=== PATIENT | male | born 2000 | race Hispanic/Latino ===

== ENCOUNTER 2020-10-24 12:14 | Emergency (ER) | payer SELFPAY ==
[2020-10-24 13:11] LABS: Absolute Lymphocytes (CBC) 0.6 K/uL (0.7-4.9); Basophils % 0.2 % (0-1.3); Hematocrit 40.1 % (39.6-49.0); Lymphocytes % 4.5 % (15.3-44.8); MPV 8.3 fL (7.6-11.3); RBC Red Blood Cell Count 4.56 M/uL (4.33-5.43)
[2020-10-24] MEDS ORDERED: FAMOTIDINE 20 MG/2 ML VIAL IV ONE (13:27)
[2020-10-24] MEDS ORDERED: NA CHLORIDE 0.9% 1,000 ML ONE (13:27)
[2020-10-24] MEDS ORDERED: ONDANSETRON 4 MG/2 ML VIAL ONE (13:27)
[2020-10-24 13:30] LABS: ALT/SGPT 23 U/L (12-78); AST/SGOT 14 U/L (15-37); Albumin 3.9 g/dL (3.4-5.0); Alkaline Phosphatase 81 U/L (45-117); BUN Blood Urea Nitrogen 12 mg/dL (7-18); Bicarbonate 26 mmol/L (21-32); Bilirubin Direct 0.1 mg/dL (0-0.2); Bilirubin Total 0.6 mg/dL (0.2-1.0); Creatine Phosphokinase 119 U/L (39-308); Glucose Level 95 mg/dL (74-106); Lipase 40 U/L (73-393); Potassium 3.5 mmol/L (3.5-5.1); Protein, Total 7.3 g/dL (6.4-8.2); Sodium Level 138 mmol/L (136-145)
[2020-10-24 13:41] LABS: Urine Blood Negative (Negative); Urine Glucose Negative (Negative); Urine Protein Negative (Negative)
--- NOTE | 2020-10-24 14:32 | RAD REPORT ---
EXAM DESCRIPTION: US - Abdomen Exam Limited - 10/24/2020 2:20 pm CLINICAL HISTORY: nausea/vomiting COMPARISON: No comparisons FINDINGS: Limited abdominal ultrasound. No shadowing gallstones identified. No pericholecystic fluid . The sonographic Young sign is negative. No biliary ductal dilatation. IMPRESSION: Negative for cholelithiasis, acute cholecystitis, or biliary ductal dilatation.
--- NOTE | 2020-10-24 14:52 | ER ---
Nurse's Notes [facility] Name: Diego Lagunas Age: 20 yrs Sex: Male : 2000 Arrival Date: 10/24/2020 Time: 12:17 Bed 19 Private MD: Diagnosis: Nausea with vomiting, unspecified;Headache Presentation: 10/24 12:23 Chief complaint: N/V and headache x 2 days, not tolerating fluids. Coronavirus screen: hb Client presents with at least one sign or symptom that may indicate coronavirus-19. Standard/surgical mask placed on the client. Provider contacted for isolation considerations. Ebola Screen: No symptoms or risks identified at this time. Initial Sepsis Screen: Does the patient meet any 2 criteria? HR > 90 bpm. No. Patient's initial sepsis screen is negative. Does the patient have a suspected source of infection? No. Patient's initial sepsis screen is negative. Risk Assessment: Do you want to hurt yourself or someone else? Patient reports no desire to harm self or others. Onset of symptoms was October 23, 2020. 12:23 Method Of Arrival: Ambulatory 12:23 Acuity: ELEAZAR 3 Triage Assessment: 13:22 General: Appears in no apparent distress. Behavior is calm, cooperative, appropriate tr6 for age. Pain: Denies pain. EENT:. EENT: No deficits noted. Neuro: No deficits noted. Cardiovascular: No deficits noted. Respiratory: No deficits noted. GI: Reports nausea, vomiting. : No deficits noted. Derm: No deficits noted. Musculoskeletal: No deficits noted. Historical: - Allergies: 12:24 No Known Allergies; hb - Home Meds: 12:24 None [Active]; hb - PMHx: 12:24 None; hb - PSHx: 12:24 None; hb - Immunization history:: Client reports receiving the 2nd dose of the Covid vaccine. - Social history:: Smoking status: Patient reports the use of cigarette tobacco products, denies chronic smoking, but will smoke occasionally. Screenin:20 Abuse screen: Denies threats or abuse. Denies injuries from another. Nutritional tr6 screening: No deficits noted. Tuberculosis screening: No symptoms or risk factors identified. Fall Risk None identified. Vital Signs: 12:23 BP 132 / 74; Pulse 98; Resp 16; Temp 99.9(TE); Pulse Ox 99% ; Weight 90.72 kg; Height 5 hb ft. 5 in. (165.10 cm); Pain 7/10; 12:23 Body Mass Index 33.28 (90.72 kg, 165.10 cm) hb ED Course: 12:17 Patient arrived in ED. mr 12:24 Triage completed. hb 12:24 Arm band placed on. hb 12:28 Estuardo Noland PA is PHCP. cp 12:28 Sean De La Rosa MD is Attending Physician. cp 12:48 Grace Pham, JAMESON is Primary Nurse. tr6 13:20 Patient has correct armband on for positive identification. Bed in low position. Call tr6 light in reach. Side rails up X 1. Door closed. Noise minimized. Visitors limited. Lights dimmed. 13:20 No provider procedures requiring assistance completed. Inserted saline lock: 18 gauge tr6 in right antecubital area, using aseptic technique. Blood collected. 14:20 US Abdomen Limited: epigastric/RUQ In Process Unspecified. EDMS 15:15 IV discontinued, intact, bleeding controlled, No redness/swelling at site. Pressure ss dressing applied. Administered Medications: 13:19 Drug: Zofran (Ondansetron) 4 mg Route: IVP; Site: right antecubital; tr6 13:19 Drug: Pepcid (famotidine) 20 mg Route: IVP; Site: right antecubital; tr6 13:19 Drug: NS 0.9% 1000 ml Route: IV; Rate: 1 bolus; Site: right antecubital; tr6 15:16 Follow up: IV Status: Completed infusion; IV Intake: 1000ml ss Intake: 15:16 IV: 1000ml; Total: 1000ml. ss Outcome: 14:51 Discharge ordered by MD. cp 15:15 Discharged to home ambulatory, with family. ss 15:15 Condition: good 15:15 Discharge instructions given to patient, family, Instructed on discharge instructions, follow up and referral plans. Demonstrated understanding of instructions, follow-up care, medications. 15:17 Patient left the ED. ss Signatures: Dispatcher [employer] [facility] Jesi UriosteguiGale RN RN Estuardo Noland PA PA cp Baxter, Heather, RN RN Ramnanan, Grace, RN RN tr6
--- NOTE | 2020-10-24 14:52 | EDPHYS ---
Physician Documentation [facility] Name: Diego Lagunas Age: 20 yrs Sex: Male : 2000 Arrival Date: 10/24/2020 Time: 12:17 Bed 19 Private MD: ED Physician Sean De La Rosa HPI: 10/24 13:00 This 20 yrs old Male presents to ER via Ambulatory with complaints of cp Vomiting, Headache. 13:00 The patient presents to the emergency department with nausea, that is mild, vomiting, cp that is intermittent, described as bilious, started last night and continued today at work. Possible causes: unknown. Associated signs and symptoms: Pertinent positives: headache, Pertinent negatives: abdominal pain, constipation, diarrhea, fever, GI bleeding. Severity of symptoms: in the emergency department the symptoms are unchanged. Historical: - Allergies: 12:24 No Known Allergies; hb - Home Meds: 12:24 None [Active]; hb - PMHx: 12:24 None; hb - PSHx: 12:24 None; hb - Immunization history:: Client reports receiving the 2nd dose of the Covid vaccine. - Social history:: Smoking status: Patient reports the use of cigarette tobacco products, denies chronic smoking, but will smoke occasionally. ROS: 13:05 Constitutional: Negative for body aches, chills, fever. cp 13:05 Eyes: Negative for injury, pain, redness, and discharge. cp 13:05 ENT: Negative for ear pain, sore throat, difficulty swallowing, difficulty handling secretions. 13:05 Cardiovascular: Negative for chest pain. 13:05 Respiratory: Negative for cough, shortness of breath, wheezing. 13:05 Abdomen/GI: Positive for nausea and vomiting, Negative for abdominal pain, diarrhea, constipation, hematemesis, black/tarry stool, rectal bleeding. 13:05 : Negative for urinary symptoms. 13:05 Neuro: Positive for headache, Negative for altered mental status, numbness, syncope, weakness. 13:05 All other systems are negative. Exam: 13:10 Constitutional: The patient appears in no acute distress, alert, awake, comfortable, cp non-toxic, well developed, well nourished. 13:10 Head/Face: Normocephalic, atraumatic. cp 13:10 Eyes: Periorbital structures: appear normal, Conjunctiva: normal, no exudate, no injection, Sclera: no appreciated abnormality, Lids and lashes: appear normal, bilaterally. 13:10 ENT: External ear(s): are unremarkable, Nose: is normal, Mouth: Lips: moist, Oral mucosa: pink and intact, moist, Posterior pharynx: Airway: no evidence of obstruction, patent. 13:10 Neck: ROM/movement: is normal, is supple, no meningismus, no nuchal rigidity, Lymph nodes: no appreciated lymphadenopathy. 13:10 Chest/axilla: Inspection: normal, Palpation: is normal, no crepitus, no tenderness. 13:10 Cardiovascular: Rate: normal, Rhythm: regular. 13:10 Respiratory: the patient does not display signs of respiratory distress, Respirations: normal, no use of accessory muscles, no retractions, labored breathing, is not present, intercostal retractions, are absent, Breath sounds: are clear throughout, no decreased breath sounds, no stridor, no wheezing. 13:10 Abdomen/GI: Inspection: abdomen appears normal, Palpation: abdomen is soft and non-tender, in all quadrants. 13:10 Back: pain, is absent, ROM is normal. 13:10 Neuro: Orientation: to person, place \T\ time. Mentation: is normal, Cerebellar function: is grossly normal, Motor: moves all fours, strength is normal, Sensation: is normal. Vital Signs: 12:23 BP 132 / 74; Pulse 98; Resp 16; Temp 99.9(TE); Pulse Ox 99% ; Weight 90.72 kg; Height 5 hb ft. 5 in. (165.10 cm); Pain 7/10; 12:23 Body Mass Index 33.28 (90.72 kg, 165.10 cm) hb MDM: 12:41 Patient medically screened. cp 13:00 Differential diagnosis: gastritis, cholecystitis, pancreatitis, viral gastroenteritis, cp gastroenteritis. 14:50 Data reviewed: vital signs, nurses notes, lab test result(s), radiologic studies, cp ultrasound. 14:50 Counseling: I had a detailed discussion with the patient and/or guardian regarding: the cp historical points, exam findings, and any diagnostic results supporting the discharge/admit diagnosis, lab results, radiology results, to return to the emergency department if symptoms worsen or persist or if there are any questions or concerns that arise at home. 14:50 Response to treatment: the patient's symptoms have markedly improved after treatment, cp VSS. Nausea and headache markedly improved, vomiting resolved and patient tolerating po fluids. Abdomen non-tender on exam. Will discharge to home for continued monitoring. 10/24 12:40 Order name: Basic Metabolic Panel 10/24 12:40 Order name: CBC with Diff 10/24 12:40 Order name: Hepatic Function; Complete Time: 14:15 10/24 14:15 Interpretation: Normal except: AST 14. 10/24 12:40 Order name: Lipase; Complete Time: 14:15 10/24 14:15 Interpretation: Normal except: LIP 40. 10/24 12:41 Order name: CK; Complete Time: 14:15 10/24 12:41 Order name: Basic Metabolic Panel; Complete Time: 14:15 EDMS 10/24 12:40 Order name: IV Saline Lock; Complete Time: 13:19 10/24 12:41 Order name: CBC with Automated Diff; Complete Time: 13:16 EDMS 10/24 13:16 Interpretation: Normal except: WBC 12.60; HGB 13.5; YVETTE% 88.5; LYM% 4.5; NEUT A 11.2; cp LYMA 0.6. 10/24 13:17 Order name: US Abdomen Limited: epigastric/RUQ; Complete Time: 14:46 10/24 14:46 Interpretation: Report reviewed. 10/24 13:42 Order name: Urine Dipstick-Ancillary; Complete Time: 14:15 EDMS 10/24 12:40 Order name: Labs collected and sent; Complete Time: 13:19 10/24 12:40 Order name: Urine Dipstick-Ancillary (obtain specimen); Complete Time: 13:42 10/24 14:47 Order name: PO challenge; Complete Time: 14:49 cp Administered Medications: 13:19 Drug: Zofran (Ondansetron) 4 mg Route: IVP; Site: right antecubital; tr6 13:19 Drug: Pepcid (famotidine) 20 mg Route: IVP; Site: right antecubital; tr6 13:19 Drug: NS 0.9% 1000 ml Route: IV; Rate: 1 bolus; Site: right antecubital; tr6 15:16 Follow up: IV Status: Completed infusion; IV Intake: 1000ml ss Disposition Summary: 10/24/20 14:51 Discharge Ordered Location: Home cp Problem: new cp Symptoms: have improved cp Condition: Stable cp Diagnosis - Nausea with vomiting, unspecified cp - Headache cp Followup: cp - With: Private Physician - When: 2 - 3 days - Reason: Worsening of condition Discharge Instructions: - Discharge Summary Sheet cp - General Headache Without Cause cp - Nausea and Vomiting, Adult cp Forms: - Medication Reconciliation Form cp - Thank You Letter cp - Antibiotic Education cp - Prescription Opioid Use cp Prescriptions: - Pepcid 20 mg Oral Tablet - take 1 tablet by ORAL route every 12 hours for 5 days; 10 tablet; Refills: 0, cp Product Selection Permitted - Zofran 4 mg Oral Tablet - take 1 tablet by ORAL route every 12 hours As needed; 20 tablet; Refills: 0, cp Product Selection Permitted Addendum: 10/28/2020 07:03 Co-signature as Attending Physician, Sean De La Rosa MD. r n Signatures: Dispatcher [employer] [facility] Sean De La Rosa MD MD rn Estuardo Noland PA PA cp Kaycee Vazquez, RN RN Grace Pham RN RN tr6 Gale Wiggins RN ss Corrections: (The following items were deleted from the chart) 10/24 14:01 13:43 URINE DIPSTICK--ANCILLARY+[email or web address].LAB.BRZ ordered. [facility] EDCT
[2020-10-24 15:39] VITALS: BP 132/74; TEMP 99.9; O2SAT 99
== END 2020-10-24 15:17 | disposition home or self-care (01) ==
LOC: ER 12:14
DX: R51.9 Headache, unspecified (principal); F17.210 Nicotine dependence, cigarettes, uncomplicated
CPT/HCPCS: 36415; 76705; 80048; 80076; 81003; 82550; 83690; 85025; 96361; 96374; 96375; 99284; J2405; J7030; Q5106